=== PATIENT | female | born 1985 | race African-American/Black ===

== ENCOUNTER 2020-05-03 15:40 | Emergency (ER) | payer OTHER ==
[~2020-05-03] VITALS: Ht 172.7 cm; Wt 122.9 kg
[2020-05-03 16:02] VITALS: BP 137/72
--- NOTE | 2020-05-03 16:28 | NUR ---
PT AMBULATED TO BED 07
--- NOTE | 2020-05-03 16:38 | NUR ---
LAB AT BEDSIDE
--- NOTE | 2020-05-03 16:50 | NUR ---
DR HICKEY AT BEDSIDE
[2020-05-03 16:51] LABS: BASOPHILS # (AUTO) 0.1 K/uL (0.00-0.22); BASOPHILS % (AUTO) 0.6 % (0.0-2.0); EOSINOPHILS # (AUTO) 0.1 K/uL (0-0.4); EOSINOPHILS % (AUTO) 1.1 % (0.0-4.0); HEMATOCRIT 37.8 % (36-48); HEMOGLOBIN 12.4 g/dL (12.0-16.0); LYMPHOCYTES # (AUTO) 2.9 K/uL (2.5-16.5); LYMPHOCYTES % (AUTO) 33.8 % (20.5-51.1); MEAN CORPUSCULAR HEMOGLOBIN 30 pg (27-31); MEAN CORPUSCULAR HGB CONC 33 g/dL (33-37); MEAN CORPUSCULAR VOLUME 92.6 fL (80-94); MONOCYTES # (AUTO) 0.6 K/uL (0.8-1.0); MONOCYTES % (AUTO) 7.1 % (1.7-9.3); NEUTROPHILS % (AUTO) 57.4 % (42.2-75.2); PLATELET COUNT (AUTO) 252 K/uL (140-450); RED BLOOD CELL COUNT(AUTO) 4.09 MIL/uL (4.20-5.40); RED CELL DISTRIBUTION WIDTH 13.7 % (11.6-13.7); WHITE BLOOD COUNT (AUTO) 8.7 K/uL (4.8-10.8)
--- NOTE | 2020-05-03 16:55 | NUR ---
C/O HEAVY BLEEDING FOR NUMEROUS MONTHS, WORSENING X 4 MONTHS. STATES GUSH OF BLOOD AND LARGE CLOT PASSED THIS MORNING. ADDS WEAKNESS AND PROGRESSIVE WEIGHT GAIN, APPROX 50 LBS. PT STATES SHE IS SEEING OB OUTPATIENT FOR THIS ISSUE WITHOUT DX YET. TACHYCARDIA. PT ALERT AND AWAKE. AMBULATORY WITH STEADY GAIT HX- DENIES ALL- HYDROCODONE
[2020-05-03 17:05] LABS: ALBUMIN 3.5 g/dL (3.4-5.0); ANION GAP 14.8 (8-16); CARBON DIOXIDE 24.8 mmol/L (21-32); CREATININE 0.9 mg/dL (0.6-1.3); POTASSIUM 3.6 mmol/L (3.5-5.1); TOTAL BILIRUBIN 0.4 mg/dL (0.0-1.0)
[2020-05-03 17:30] VITALS: BP 142/70
--- NOTE | 2020-05-03 17:30 | NUR ---
Patient discharged with v/s stable. Written and verbal after care instructions given and explained. Patient verbalized understanding. Ambulatory with steady gait. All questions addressed prior to discharge. Advised to follow up with PMD. PT GIVEN COPY OF LAB RESULTS
== END 2020-05-03 17:30 | disposition home or self-care (01) ==
LOC: MED 15:40
DX: N93.9 Abnormal uterine and vaginal bleeding, unspecified (principal); Z88.5 Allergy status to narcotic agent
CPT/HCPCS: 36415; 80053; 81002; 81025; 85025; 99283